=== PATIENT | male | born 1960 | race Caucasian/White ===

== ENCOUNTER 2019-03-28 20:07 | Emergency (ER) | payer BC ==
[~2019-03-28] VITALS: Ht 170.2 cm; Wt 94.0 kg
[2019-03-28] MEDS ORDERED: TETANUS, DIPHTHERIA, PERTUSSIS VAC/PF 0.5ML (>7YR OLD) IM ONE (23:00)
[2019-03-28] MEDS ORDERED: LIDOCAINE HCL/PF 1% 10 MG/ML 5ML VIAL IJ ONE ×2 (23:00→23:45)
[2019-03-29 00:06] VITALS: BP 124/78
== END 2019-03-29 00:07 | disposition home or self-care (01) ==
LOC: ER 23:32
DX: S61.412A Laceration without foreign body of left hand, initial encounter (principal); W26.8XXA Contact with other sharp object(s), not elsewhere classified, initial encounter; Y93.89 Activity, other specified; Y92.018 Other place in single-family (private) house as the place of occurrence of the external cause
CPT/HCPCS: 12001; 73130; 90471; 90715; 99283; J3490